=== PATIENT | female | born 1985 | race Caucasian/White ===

== ENCOUNTER 2018-08-27 18:59 | Emergency (ER) | payer BC ==
[~2018-08-27] VITALS: Ht 177.8 cm; Wt 102.1 kg
[2018-08-27 19:05] VITALS: BP 118/45
--- NOTE | 2018-08-27 19:30 | NUR ---
Dr. Mar evaluating patient at bedside.
[2018-08-27] MEDS ORDERED: ALPRAZolam 0.5 MG TAB PO ONE (19:40)
[2018-08-27 19:58] LABS: BASOPHILS % (AUTO) 0.7 % (0.0-2.0); EOSINOPHILS % (AUTO) 0.9 % (0.0-4.0); HEMATOCRIT 35.1 % (36-48); HEMOGLOBIN 11.5 g/dL (12.0-16.0); LYMPHOCYTES # (AUTO) 1.4 K/uL (2.5-16.5); LYMPHOCYTES % (AUTO) 26.8 % (20.5-51.1); MEAN CORPUSCULAR HEMOGLOBIN 27 pg (27-31); MEAN CORPUSCULAR HGB CONC 33 g/dL (33-37); MEAN CORPUSCULAR VOLUME 81.7 fL (80-94); MONOCYTES # (AUTO) 0.4 K/uL (0.8-1.0); MONOCYTES % (AUTO) 8.5 % (1.7-9.3); NEUTROPHILS # (AUTO) 3.2 K/uL (1.8-7.7); NEUTROPHILS % (AUTO) 63.1 % (42.2-75.2); PLATELET COUNT (AUTO) 334 K/uL (140-450); RED BLOOD CELL COUNT(AUTO) 4.29 MIL/uL (4.20-5.40); RED CELL DISTRIBUTION WIDTH 15.3 % (11.6-13.7); WHITE BLOOD COUNT (AUTO) 5.1 K/uL (4.8-10.8)
[2018-08-27 20:13] LABS: ANION GAP 11.7 (8-16); CARBON DIOXIDE 27.2 mmol/L (21-32); CREATININE 0.9 mg/dL (0.6-1.3); POTASSIUM 3.9 mmol/L (3.5-5.1)
[2018-08-27 20:28] LABS: ALBUMIN 3.8 g/dL (3.4-5.0); FREE T4 (FREE THYROXINE) 1.12 ng/dL (0.76-1.46); THYROID STIMULATING HORMONE 1.22 uIU/mL (0.34-3.74); TOTAL BILIRUBIN 1.1 mg/dL (0.0-1.0)
[2018-08-27 20:43] VITALS: BP 110/60
--- NOTE | 2018-08-27 20:43 | NUR ---
Patient discharged with v/s stable. Written and verbal after care instructions given and explained. Patient verbalized understanding. Ambulatory with steady gait. All questions addressed prior to discharge. Advised to follow up with PMD.
== END 2018-08-27 20:43 | disposition home or self-care (01) ==
LOC: MED 18:59
DX: F41.9 Anxiety disorder, unspecified (principal); D64.9 Anemia, unspecified; R42 Dizziness and giddiness
CPT/HCPCS: 36415; 80053; 84439; 84443; 85025; 93005; 99284